=== PATIENT | female | born 1945 | race Caucasian/White ===

== ENCOUNTER 2016-12-03 06:19 | Emergency (ER) | payer MEDICARE, BC ==
[2016-12-03] MEDS ORDERED: HYDROCODONE/ACETAMINOPHEN 5-325 MG TABLET PO ONE (07:05)
--- NOTE | 2016-12-03 07:06 | ER Document Report ---
ED General - General Time seen by provider: 06:45 Mode of Arrival: Medic Information source: Patient TRAVEL OUTSIDE OF THE U.S. IN LAST 30 DAYS: No - HPI Onset: Other - see HPI note Associated symptoms: Chest pain, Other. denies: Vomiting Similar symptoms previously: No Recently seen / treated by doctor: No <GT FORD - Last Filed: 12/03/16 13:56> <LYUBOV FONTANA - Last Filed: 12/04/16 05:33> - General Chief Complaint: Chest Pain Stated Complaint: CHEST PAIN Notes: Patient is a 71-year-old female presenting to the emergency department for chest pain. Patient states that her pain is on the right side and goes into her shoulder or neck. Patient states the pain "grabs"her. Patient states her pain is constant and sharp that it came on gradually. Patient states that her left arm is stiff and her pain also radiates some into her back. Patient states that she just moved from [place] and slept on a new mattress last night. Patient states that when she sleeps on new pillows or different mattresses she can become very sore. Patient states she had massage last week. Patient denies any shortness of breath, cough, difficulty breathing, pain with breathing, or headache. Patient denies any history of blood clots. Patient has had a history of stroke x3. Patient has hypertension, but states that she is unable to take any blood pressure medications esophagus. Patient states she has started side effects with these medications and does not take them. Patient also has anxiety and a history of degenerative discs in her neck. Patient also has a history of 4.4 cm thoracic aneurysm which is being closely followed. (GT FORD) - Related Data Allergies/Adverse Reactions: Antihypertensive Medications Allergy (Uncoded 12/03/16 11:38) Past Medical History - General Information source: Patient - Social History Smoking Status: Unknown if Ever Smoked Family History: None Patient has suicidal ideation: No Patient has homicidal ideation: No Neurological Medical History: Reports: Hx Cerebrovascular Accident - x3 Musculoskeltal Medical History: Reports Other - degenerative disk disease Psychiatric Medical History: Reports: Hx Anxiety <GT FORD - Last Filed: 12/03/16 13:56> Review of Systems - Review of Systems Constitutional: No symptoms reported EENT: No symptoms reported Cardiovascular: See HPI, Chest pain Respiratory: No symptoms reported Gastrointestinal: No symptoms reported Genitourinary: No symptoms reported Female Genitourinary: No symptoms reported Musculoskeletal: See HPI Skin: No symptoms reported Hematologic/Lymphatic: No symptoms reported Neurological/Psychological: No symptoms reported -: Yes All other systems reviewed and negative <GT FORD - Last Filed: 12/03/16 13:56> Physical Exam - Vital signs Interpretation: Normal - General General appearance: Appears well, Alert In distress: Mild - HEENT Head: Normocephalic, Atraumatic Eyes: Normal Pupils: PERRL Mucous membranes: Moist - Respiratory Respiratory status: No respiratory distress Chest status: Tender - reproducible pain with palpation to right anterior chest wall Breath sounds: Normal Chest palpation: Normal - Cardiovascular Rhythm: Regular Heart sounds: Normal auscultation Murmur: No - Abdominal Inspection: Normal Distension: No distension Bowel sounds: Normal Tenderness: Nontender Organomegaly: No organomegaly - Back Back: Normal, Nontender - Extremities General upper extremity: Other - reproducible pain with movment of the right arm General lower extremity: Normal inspection, Normal ROM, Normal strength - Neurological Neuro grossly intact: Yes Cognition: Normal Orientation: AAOx4 [place] Coma Scale Eye Opening: Spontaneous Alvin Coma Scale Verbal: Oriented Alvin Coma Scale Motor: Obeys Commands Alvin Coma Scale Total: 15 Speech: Normal Sensory: Normal - Psychological Associated symptoms: Normal affect, Normal mood - Skin Skin Temperature: Warm Skin Moisture: Dry <GT FORD - Last Filed: 12/03/16 13:56> Course - Laboratory Result Diagrams: 12/03/16 07:10 12/03/16 07:10 <GT FORD - Last Filed: 12/03/16 13:56> - Laboratory Result Diagrams: 12/03/16 07:10 12/03/16 07:10 <LYUBOV FONTANA - Last Filed: 12/04/16 05:33> - Re-evaluation Re-evalutation: 12/03/16 11:08 Patient presents emergency department with right-sided chest pain right shoulder pain onset 4 days ago. She is moving recently doesn't know whether she injured or not it is reproducible to movement of her right arm touch and palpation of her right anterior chest wall. She denies any shortness of breath this does not change with exertion. She says that she has a history of a thoracic aneurysm which is monitored by a vascular surgeon in [place]. She also has extensive history of high blood pressure which she states she is allergic to all the medications has refused to take all them and sees a specialist that can no longer give her any medications to treat it she is aware that her blood pressure significantly elevated and chronically over time can cause additional strokes ruptured aneurysm kidney failure and aneurysm rupture. She verbalizes understanding that refuses any blood pressure medication here either orally or through the IV. She denies ever having a stent or heart attack in the past. Her EKG with none to compare to shows mild ST depression no acute ST segment elevation. Cardiac enzymes are negative with constant for days worth of chest wall pain and is reproducible with touch movement of the shoulder. She may have strained her rotator cuff she had significant pain when she tries to elevate her arm. CT of the chest abdomen pelvis is negative acute patient improved with [place] requesting muscle relaxer to has pain along the right sternocleidomastoid muscle and into the anterior shoulder. Has taken muscle relaxers for some similar in the past and actually got a massage that helped a little bit the other day. She states that anytime she sleeps with a new pallor mattress which she has done recently she gets pain down into her shoulder or neck and for that she gets a massage. We extensively discussed follow-up I gave her on-call medical doctor here seen in follow-up in 1-2 days and discussed reasons for ED return sooner. If they feel that she needs an outpatient stress test we discussed that I could be an option otherwise she verbalizes understanding on reasons to return. (LYUBOV FONTANA) - Vital Signs Vital signs: Temp Pulse Resp BP Pulse Ox 97.7 F 96 25 H 164/96 H 94 12/03/16 06:22 12/03/16 06:22 12/03/16 11:30 12/03/16 11:30 12/03/16 11:30 - Laboratory Laboratory results interpreted by me: 12/03/16 12/03/16 07:10 07:10 WBC 13.5 H RDW 15.2 H Absolute Neutrophils 8.8 H Sodium 135.1 L Chloride 97 L Glucose 241 H Discharge <GT FORD - Last Filed: 12/03/16 13:56> <LYUBOV FONTANA - Last Filed: 12/04/16 05:33> - Discharge Clinical Impression: nonspecific chest pain Condition: Stable Disposition: HOME, SELF-CARE Instructions: Chest Wall Pain ([facility]) Additional Instructions: Chest Pain of Unclear Cause The exact cause of your chest pain isn't clear. Fortunately, there is no evidence of a dangerous medical condition. Further testing may be required to find the source of the pain. Most often, we find that this pain is coming from the chest wall -- the muscles or rib joints in the chest. But chest pain can come from the lung and lung lining, the esophagus, the heart valves or heart lining, and even the stomach or gallbladder. Rest. Eat lightly until the pain is gone. We may prescribe medicine for pain and inflammation. You should call the physician immediately if the pain radiates to the shoulder, jaw or arms; if you start to run a fever or develop a cough; or if you develop shortness of breath, or other new or alarming symptoms. Prescriptions: Hydrocodone/Acetaminophen [[place] 5-325 Tablet] 1 each PO TID #12 tablet Methocarbamol [Robaxin 500 mg Tablet] 500 mg PO BID #12 tablet Forms: Elevated Blood Pressure Referrals: EDGAR OLIVERA MD [ACTIVE STAFF] - (Call for an appointment be seen in 2 or 3 days make sure he tell the urine ER patient do not have a local primary care physician return for increasing worsening or new symptoms) Scribe Attestation: 12/03/16 11:12 (LYUBOV FONTANA) Scribe Documentation - Scribe Written by Angel:: [place] 12/03/16 13:35 acting as scribe for :: Martin <GT FORD - Last Filed: 12/03/16 13:56>
[2016-12-03 07:30] LABS: ABSOLUTE BASOPHILS # (AUTO) 0.1 10^3/uL (0.0-0.2); ABSOLUTE EOSINOPHILS # (AUTO) 0.1 10^3/uL (0.0-0.6); ABSOLUTE LYMPHOCYTES (AUTO) 3.3 10^3/uL (0.5-4.7); ABSOLUTE MONOCYTES (AUTO) 1.2 10^3/uL (0.1-1.4); ABSOLUTE NEUT (AUTO) 8.8 10^3/uL (1.7-8.2); BASOPHILS % (AUTO) 0.4 % (0-2); EOSINOPHILS % (AUTO) 0.5 % (0-6); HEMATOCRIT 38.3 % (36.0-47.0); HEMOGLOBIN 13.1 g/dL (12.0-15.5); LYMPHOCYTES % (AUTO) 24.7 % (13-45); MEAN CORPUSCULAR HEMOGLOBIN 27.9 pg (27.0-33.4); MEAN CORPUSCULAR HGB CONC 34.2 g/dL (32.0-36.0); MEAN CORPUSCULAR VOLUME 82 fl (80-97); RED CELL DISTRIBUTION WIDTH 15.2 % (11.5-14.0); SEGMENTED NEUTROPHILS % (AUTO) 65.4 % (42-78); WHITE BLOOD COUNT 13.5 10^3/uL (4.0-10.5)
[2016-12-03 07:48] LABS: ANION GAP 12 (5-19); BLOOD UREA NITROGEN 11 mg/dL (7-20); CALCIUM 9.7 mg/dL (8.4-10.2); CARBON DIOXIDE 26 mmol/L (22-30); CHLORIDE 97 mmol/L (98-107); CREATINE KINASE 49 U/L (30-135); GLUCOSE 241 mg/dL (75-110); LIPASE 107.3 U/L (23-300); POTASSIUM 4.3 mmol/L (3.6-5.0); SODIUM 135.1 mmol/L (137-145)
[2016-12-03 08:19] LABS: TROPONIN I 0.107 ng/mL
[2016-12-03 11:37] VITALS: BP 164/96
--- NOTE | 2016-12-03 17:04 | EKG REPORT ---
SEVERITY:- ABNORMAL ECG - SINUS RHYTHM RIGHT BUNDLE BRANCH BLOCK ST DEPRESSION, CONSIDER ISCHEMIA, ANT-LAT LDS : Confirmed by: Alisha Bergeron MD 03-Dec-2016 17:02:44
== END 2016-12-03 11:59 | disposition home or self-care (01) ==
LOC: ER 06:19
DX: R07.9 Chest pain, unspecified (principal); F41.9 Anxiety disorder, unspecified
CPT/HCPCS: 93005; 99285; 36415; 82550; 83690; 85025; 80048; 84484; 83880; 71275; 74175; 93010; A9270

== ENCOUNTER → 2017-09-03 | Outpatient (CLI) | payer MEDICARE, BC ==
--- NOTE | 2017-09-03 13:23 | RADIOLOGY REPORT (SQ) ---
EXAM DESCRIPTION: BARIUM SWALLOW PHARYNX ONLY COMPLETED DATE/TIME: 09/03/2017 10:16 am REASON FOR STUDY: DYSPHAGIA (R13.10) R13.10 DYSPHAGIA, UNSPECIFIED COMPARISON: CT chest abdomen pelvis 12/03/2016 TECHNIQUE: Under fluoroscopic guidance, patient ingested effervescent granules followed by thick and thin barium. Fluoroscopic spot images and routine radiographic images acquired and stored on PACS. 12 MM BARIUM TABLET GIVEN: Yes. No significant delay in passage. LIMITATIONS: None. FLUOROSCOPY TIME: FLUORO TIME: 24 seconds 12 digital radiographic images saved to PACS. FINDINGS: NEUROMUSCULAR COORDINATION OF SWALLOW: Normal. No aspiration. ESOPHAGEAL MOTILITY: Normal peristalsis. No esophageal spasm. ESOPHAGEAL MUCOSA: Normal mucosa without masses or ulceration. GASTRO-ESOPHAGEAL JUNCTION: Tiny hiatal hernia with mild gastroesophageal reflux. No distal esophage al stricture. No distal esophageal mucosal abnormality. NON-GI TRACT STRUCTURES: No significant finding. OTHER: No other significant finding. IMPRESSION: Tiny hiatal hernia with mild gastroesophageal reflux. COMMENT: Quality ID [id number]: Final reports for procedures using fluoroscopy that document radiation exp osure indices, or exposure time and number of fluorographic images (if radiation exposure indices are not available) TECHNICAL DOCUMENTATION: JOB ID: [id number] [employer]- All Rights Reserved
== END ==
LOC: RAD 09:10
PROVIDERS: ATTEND Internal Medicine Gastroenterology
DX: R13.10 Dysphagia, unspecified (principal)
CPT/HCPCS: 74210

== ENCOUNTER → 2018-07-17 | Outpatient (CLI) | payer MEDICARE, BC ==
--- NOTE | 2018-07-17 16:48 | WOMENS IMAGING REPORT ---
EXAM DESCRIPTION: 3D SCREENING MAMMO BILAT COMPLETED DATE/TIME: 07/17/2018 2:42 pm REASON FOR STUDY: SCREENING MAMMO Z12.31 ENCNTR SCREEN MAMMOGRAM FOR MALIGNANT NEOPLASM OF TRICIA COMPARISON: None. TECHNIQUE: Standard craniocaudal and mediolateral oblique views of each breast recorded using digita l acquisition and breast tomosynthesis. LIMITATIONS: None. FINDINGS: No masses, calcifications or architectural distortion. No areas of suspicion. Read with the assistance of CAD. .[facility] - R2 [employer] Version 1.3 .[facility] Imaging - R2 Cenova Version 1.3 .[facility] Imaging - R2 Cenova Version 2.4 .[facility] - R2 Cenova Version 2.4 .[facility] - R2 [employer] Version 9.2 IMPRESSION: NORMAL MAMMOGRAM. BIRADS 1. BREAST DENSITY: c. The breasts are heterogeneously dense, which may obscure small masses. BIRAD: 1 NEGATIVE RECOMMENDATION: ROUTINE SCREENING Please continue yearly bilateral screening tomosynthesis in June 2019 COMMENT: The patient has been notified of the results by letter per SA requirements. Additional no tification policies are in place for contacting patient with suspicious or incomplete findings. Quality ID #[id number]: The [employer] recommends an annual screening mammogram for women aged 40 years or over. This facility utilizes a reminder system to ensure that all patients receive reminder letters, and/or direct phone calls for appointments. This includes reminders for routine scr eening mammograms, diagnostic mammograms, or other Breast Imaging Interventions when appropriate. Th is patient will be placed in the appropriate reminder system. The [employer] (ACR) has developed recommendations for screening MRI of the breast s in certain patient populations, to be used in conjunction with mammography. Breast MRI surveillanc e may be appropriate for women with more than 20% lifetime risk of developing breast cancer as deter mined by genetic testing, significant family history of the disease, or history of mantle radiation f or Hodgkins Disease. ACR Practice Guidelines 2008. DBT Technology DBT is a type of tomographic mammography. With conventional mammography, overlapping breast tissue ma y make lesions difficult to detect, even with good compression. DBT uses an x-ray tube that rotates a round the breast, taking images at different angles. These images are then combined to create thin sl ices of the breast that the radiologist can view as a 3D reconstruction. The [employer] unit can perform full-field digital mammograms (2D imaging); or DBT (3D imaging); or both, in a combination mode that quickly performs both the mammogram and the tomosynthesis scan while the breast is still compressed. PQRS 6045F: Fluoroscopic imaging is not utilized for breast tomosynthesis. TECHNICAL DOCUMENTATION: FINDING NUMBER: (1) ASSESSMENT: (1) JOB ID: [id number] [employer]- All Rights Reserved Reading location - IP/workstation name: [email or web address]-RR2
== END ==
LOC: WI 13:39
PROVIDERS: ATTEND Family Medicine
DX: Z12.31 Encounter for screening mammogram for malignant neoplasm of breast (principal)
CPT/HCPCS: 77063; 77067

== ENCOUNTER 2019-09-21 14:20 | Inpatient (IN) | payer MEDICARE, BC ==
--- NOTE | 2019-09-21 14:40 | ER Document Report ---
ED Medical Screen (RME) - General Chief Complaint: Breathing Difficulty Stated Complaint: BREATHING DIFFICULTY Time Seen by Provider: 09/21/19 14:30 Primary Care Provider: STEFAN THAKUR DO [Primary Care Provider] - Follow up as needed Mode of Arrival: Wheelchair Information source: Patient Notes: Patient presents complaining of shortness of breath for the past 6 weeks. Patient states over the past 2 weeks is gotten worse and she has extreme shortness of breath with exertion. Patient denies any chest pain or back pain. Patient denies any nausea or vomiting. Patient does report a history of CHF, hypertension and CAD. I have greeted and performed a rapid initial assessment of this patient. A comprehensive ED assessment and evaluation of the patient, analysis of test results and completion of the medical decision making process will be conducted by additional ED providers. TRAVEL OUTSIDE OF THE [place] IN LAST 30 DAYS: No - Related Data Allergies/Adverse Reactions: Antihypertensive Medications Allergy (Uncoded 12/03/16 11:38) Past Medical History Neurological Medical History: Reports: Hx Cerebrovascular Accident - x3 Renal/ Medical History: Denies: Hx Peritoneal Dialysis Psychiatric Medical History: Reports: Hx Anxiety Physical Exam - Respiratory Respiratory status: Labored, Tachypnea, Other - Patient speaks in short 3-5 word sentences Chest status: Nontender Breath sounds: No: Nonproductive cough Doctor's Discharge - Discharge Referrals: STEFAN THAKUR DO [Primary Care Provider] - Follow up as needed
[2019-09-21 15:14] LABS: ABSOLUTE BASOPHILS # (AUTO) 0.1 10^3/uL (0.0-0.2); ABSOLUTE EOSINOPHILS # (AUTO) 0.1 10^3/uL (0.0-0.6); ABSOLUTE LYMPHOCYTES (AUTO) 3.1 10^3/uL (0.5-4.7); ABSOLUTE MONOCYTES (AUTO) 0.4 10^3/uL (0.1-1.4); EOSINOPHILS % (AUTO) 1.2 % (0-6); HEMATOCRIT 36.2 % (36.0-47.0); HEMOGLOBIN 12.5 g/dL (12.0-15.5); LYMPHOCYTES % (AUTO) 39.8 % (13-45); MEAN CORPUSCULAR HGB CONC 34.4 g/dL (32.0-36.0); MEAN CORPUSCULAR VOLUME 84 fl (80-97); MONOCYTES % (AUTO) 5.8 % (3-13); PLATELET COUNT 372 10^3/uL (150-450); RED CELL DISTRIBUTION WIDTH 13.7 % (11.5-14.0); SEGMENTED NEUTROPHILS % (AUTO) 52.2 % (42-78); TOTAL CELLS COUNTED % (AUTO) 100 %; WHITE BLOOD COUNT 7.7 10^3/uL (4.0-10.5)
--- NOTE | 2019-09-21 15:41 | RADIOLOGY REPORT (SQ) ---
EXAM DESCRIPTION: CHEST SINGLE VIEW COMPLETED DATE/TIME: 09/21/2019 2:24 pm REASON FOR STUDY: dyspnea COMPARISON: None. EXAM PARAMETERS: NUMBER OF VIEWS: One view. TECHNIQUE: Single frontal radiographic view of the chest acquired. RADIATION DOSE: NA LIMITATIONS: None. FINDINGS: LUNGS AND PLEURA: No opacities, masses or pneumothorax. No pleural effusion. MEDIASTINUM AND HILAR STRUCTURES: No masses. Contour normal. HEART AND VASCULAR STRUCTURES: Moderate cardiomegaly. No pulmonary vascular congestion. BONES: No acute findings. HARDWARE: None in the chest. OTHER: No other significant finding. IMPRESSION: No acute cardiopulmonary disease. TECHNICAL DOCUMENTATION: JOB ID: [id number] [employer]- All Rights Reserved Reading location - IP/workstation name: [email or web address]
[2019-09-21 15:51] LABS: ALBUMIN 4.1 g/dL (3.5-5.0); ALKALINE PHOSPHATASE 98 U/L (38-126); ANION GAP 12 (5-19); ASPARTATE AMINO TRANSFERASE 23 U/L (14-36); BILIRUBIN,DIRECT 0.2 mg/dL (0.0-0.4); BILIRUBIN,TOTAL 0.7 mg/dL (0.2-1.3); BLOOD UREA NITROGEN 8 mg/dL (7-20); CALCIUM 9.8 mg/dL (8.4-10.2); CARBON DIOXIDE 23 mmol/L (22-30); CHLORIDE 105 mmol/L (98-107); GLUCOSE 170 mg/dL (75-110); POTASSIUM 3.9 mmol/L (3.6-5.0)
[2019-09-21 16:04] LABS: TROPONIN I 0.037 ng/mL
--- NOTE | 2019-09-21 16:05 | ER Document Report ---
ED General - General Chief Complaint: Shortness Of Breath Stated Complaint: BREATHING DIFFICULTY Time Seen by Provider: 09/21/19 14:30 Primary Care Provider: STEFAN THAKUR DO [Primary Care Provider] - Follow up as needed Mode of Arrival: Wheelchair Notes: HPI: 74-year-old female with past medical history as recorded including a cardiac stent this past May who presents today with what she states is some progressive shortness of breath since July. She states it is gotten a lot w orse over the last 2 weeks. Positive orthopnea. She does state some runny nose and congestion but she states that is been since July 29. Patient used to be on a water pill secondary to the stenting but this has been discontinued. Patient denies any fevers, vomiting, calf pain or leg swelling. Patient states 3 days ago she had a short episode of left-sided chest pain that was transient. No chest pain since that time. ROS: See HPI All other review of systems reviewed and otherwise negative Reviewed vital signs and nursing note as charted by RN. PHYSICAL EXAM: CONSTITUTIONAL: Alert and oriented and responds appropriately to questions. Well-appearing; well-nourished HEAD: Normocephalic; atraumatic CARD: Regular rate and rhythm; no murmurs; symmetric distal pulses RESP: Normal chest excursion without splinting or tachypnea; breath sounds clear and equal bilaterally; I do not auscultate any wheezing, rhonchi, or rales currently ABD/GI: Normal bowel sounds; non-distended; soft, non-tender; no palpable organomegaly or masses BACK: The back appears normal and is non-tender to palpation EXT: Normal ROM in all joints; non-tender to palpation; no edema SKIN: No acute lesions noted NEURO: CN 2-12 intact; 5/5 bilateral upper and lower extremity strength with sensation intact to light touch PSYCH: The patient's mood and manner are appropriate. Grooming and personal h ygiene are appropriate. TRAVEL OUTSIDE OF THE [place].S[place] IN LAST 30 DAYS: No - Related Data Allergies/Adverse Reactions: Antihypertensive Medications Allergy (Uncoded 12/03/16 11:38) Past Medical History - General Information source: Patient - Social History Smoking Status: Never Smoker Family History: None Patient has suicidal ideation: No Patient has homicidal ideation: No - Past Medical History Cardiac Medical History: Reports: Hx Congestive Heart Failure, Hx Hypertension Neurological Medical History: Reports: Hx Cerebrovascular Accident - x3 Renal/ Medical History: Denies: Hx Peritoneal Dialysis Psychiatric Medical History: Reports: Hx Anxiety, Hx Depression - anxiety Past Surgical History: Reports: Hx Appendectomy, Hx Cardiac Catheterization - stent x's 1, Hx Hysterectomy - partial Physical Exam - Vital signs Vitals: Temp Pulse Resp BP Pulse Ox 97.6 F 101 H 24 H 190/99 H 97 09/21/19 14:29 09/21/19 14:29 09/21/19 14:29 09/21/19 14:29 09/21/19 14:29 Course - Re-evaluation Re-evalutation: Given the above history and physical examination, we will obtain basic labs, cardiac labs, x-ray of the chest, and an EKG. I would like to assess for the possibility of ACS. Patient does state some shortness of breath. She however only had transient chest pain 3 days ago. No lower extremity edema or calf pain. No history of DVT/PE. Patient is slightly tachycardic. She also appears to be very anxious with tearful affect at times during the interview. Blood pressure is elevated. Lungs are clear to auscultation. D-dimer has been added. 09/21/19 16:03 Labs initially as recorded. D-dimer slightly elevated. Lungs appear clear on x-ray. BNP and troponin are pending. 09/21/19 16:07 EKG shows a heart rate of 107, sinus tachycardia, right bundle branch block, with inverted T waves II, III, AVF, V-V6.. Previous EKG in November 2016 shows a similar EKG pattern with progression of the RBBB. 09/21/19 17:38 Troponin and BNP as recorded. ABG is pending. I have provided a dose of Lasix. Patient is currently not on any fluid pills at this time. I have provided a small dose of Ativan given the patient's increased anxiety. I will recheck the patient's blood pressure. Patient is still satting 99%. 09/21/19 18:19 I called and spoke directly to the radiologist who sees some increased interstitial markings with some bilateral pleural effusions that are small. Patient feels much better after the morphine. She is still satting 100%, now on 2 L. Heart rate is 101. I will provide a small dose of nitroglycerin and place the patient on BiPAP just for some comfort as the Lasix has time to work. I have talked to the hospitalist who is admitted the patient. Initial troponin as recorded. Patient has not any chest discomfort for 3 days. - Vital Signs Vital signs: Temp Pulse Resp BP Pulse Ox 97.6 F 101 H 24 H 190/99 H 95 09/21/19 14:29 09/21/19 14:29 09/21/19 14:29 09/21/19 14:29 09/21/19 15:09 - Laboratory Result Diagrams: 09/21/19 15:03 09/21/19 15:03 Laboratory results interpreted by me: 09/21/19 09/21/19 09/21/19 15:03 15:03 15:11 D-Dimer 0.69 H Glucose 170 H NT-Pro-B Natriuret Pep 5500 H Discharge - Discharge Clinical Impression: Acute congestive heart failure Qualifiers: Heart failure type: unspecified Qualified Code(s): I50.9 - Heart failure, unspecified Condition: Fair Disposition: ADMITTED INPATIENT Admitting Provider: Mitra (Hospitalist) Unit Admitted: IMCU Referrals: STEFAN THAKUR DO [Primary Care Provider] - Follow up as needed
[2019-09-21] MEDS ORDERED: ASPIRIN 325 MG TABLET PO ONE (16:06)
[2019-09-21] MEDS ORDERED: IPRATROPIUM/ALBUTEROL 0.5-2.5 MG/3 ML AMPUL NEB SCH (16:15)
[2019-09-21] MEDS ORDERED: MORPHINE SULFATE 10 MG/ML INJ IV ONE (17:26)
[2019-09-21] MEDS ORDERED: FUROSEMIDE INJ/PF 40 MG/4 ML SDV IV ONE (17:38)
[2019-09-21] MEDS ORDERED: NITROGLYCERIN 0.4 MG/TAB 25 TAB/BOTTLE SL ONE (18:13)
[2019-09-21] MEDS ORDERED: ACETAMINOPHEN 325 MG TABLET PO PRN (18:21)
[2019-09-21] MEDS ORDERED: OXYCODONE-ACETAMINOPHEN 5-325 MG TABLET PO PRN (18:21)
[2019-09-21] MEDS ORDERED: PROMETHAZINE HCL INJ 25 MG/1 ML VIAL IV PRN (18:21)
[2019-09-21] MEDS ORDERED: MAG HYDROX/AL HYDROX/SIMETH SUSP 30 ML UDCUP PO PRN (18:21)
[2019-09-21] MEDS ORDERED: ONDANSETRON HCL INJ/PF 4 MG/2 ML SDV IV PRN (18:21)
[2019-09-21] MEDS ORDERED: MAGNESIUM HYDROXIDE SUSP 30 ML UDCUP PO PRN (18:21)
--- NOTE | 2019-09-21 18:44 | RADIOLOGY REPORT (SQ) ---
EXAM DESCRIPTION: CTA CHEST COMPLETED DATE/TIME: 09/21/2019 6:15 pm REASON FOR STUDY: 20; sob COMPARISON: Chest x-ray 09/21/2019. CT angiogram chest 12/03/2016 TECHNIQUE: CT scan of the chest performed using helical scanning technique with dynamic intravenous contrast injection. Images reviewed with lung, soft tissue and bone windows. Reconstructed coronal and sagittal MPR images reviewed. Additional 3 dimensional post-processing performed to develop Maximal Intensity Projection images (VT P). All images stored on PACS. All CT scanners at this facility use dose modulation, iterative reconstruction, and/or weight based d osing when appropriate to reduce radiation dose to as low as reasonably achievable (ALARA). [facility]: Dose Right [facility]: CareDose [facility]: Dose Right [facility]: Teradose 4D [facility]: My Luv My Life My Heartbeats CONTRAST TYPE AND DOSE: contrast/concentration: Isovue 350.00 mg/ml; Total Contrast Delivered: 63.0 ml; Total Saline Delivered: 80.0 ml Contrast bolus optimized for the pulmonary arteries. Not diagnostic for the aorta. RENAL FUNCTION: Creatinine 0.60 RADIATION DOSE: CT Rad equipment meets quality standard of care and radiation dose reduction techniq ues were employed. CTDIvol: 14.4 - 26.4 mGy. DLP: 512 mGy-cm. . LIMITATIONS: None. FINDINGS: LUNGS AND PLEURA: There are moderate bilateral pleural effusions with atelectasis at the a djacent lower lobes. There is diffuse septal thickening suggestive of interstitial edema. No pneumo thorax. AORTA AND GREAT VESSELS: Atherosclerotic calcifications at the thoracic aorta. There is 4.4 cm aneur ysmal dilation of the ascending thoracic aorta, previously measured 4.2 cm. Contrast bolus not optim ized for the aorta. HEART: The heart is enlarged. There is a small pericardial effusion. Coronary artery calcifications are noted. PULMONARY ARTERIES: No emboli visualized in the main pulmonary arteries or the segmental branches. HILAR AND MEDIASTINAL STRUCTURES: No identified masses or abnormal nodes. HARDWARE: None in the chest. UPPER ABDOMEN: There is reflux of intravenous contrast into the IVC and the hepatic veins. THYROID AND OTHER SOFT TISSUES: There is a 1.3 cm hypodense nodule at the right lobe of the thyroid g land. BONES: Multilevel degenerative changes at the spine. 3D MIPS: Confirm above findings. For IMPRESSION: 1. No pulmonary emboli. 2. Cardiomegaly. Coronary artery calcifications. Small pericardial effusion. Reflux of intravenous contrast into the IVC and the hepatic veins, may be seen with right heart failure. 2. Interstitial edema. Moderate bilateral pleural effusions with bibasilar atelectasis. 3. 4.4 cm aneurysmal dilation of the ascending thoracic aorta, mildly increased in the interval. 4. 1.3 cm hypodense nodule at the right lobe of the thyroid gland. Nonemergent thyroid ultrasound ca n be obtained for further characterisation. COMMENT: Quality ID # [id number]: Final reports with documentation of one or more dose reduction techniques (e.g., Automated exposure control, adjustment of the mA and/or kV according to patient size, use of iterative reconstruction technique) TECHNICAL DOCUMENTATION: JOB ID: [id number] [employer]- All Rights Reserved Reading location - IP/workstation name: [email or web address]
[2019-09-21] MEDS ORDERED: HYDRALAZINE HCL INJ/PF 20 MG/1 ML SDV IV PRN (18:57)
--- NOTE | 2019-09-21 18:57 | PDOC H&P ---
History of Present Illness Admission Date/PCP: STEFAN THAKUR DO History of Present Illness: ROBER VELÁZQUEZ is a 74 year old female past medical history of severe anxiety, obstructive sleep apnea, CHF, CAD status post stent placement in LAD May 2019, presenting with worsening shortness of breath, orthopnea and paroxysmal nocturnal dyspnea which has worsened after left heart cath and stent placement in May 2019. Denies any history prior [place] however stating that prior to stent placement in 2018 she had severe CHF had a left heart cath done which showed complete blockage of RCA and LAD, had a stent placed in LAD and was supposed to have a CABG but was not a candidate. She is stating does not remember any medication by name but all her life she has not been able to tolerate any of her medications " if I am supposed to take it regularly " therefore she is not taking any medications right now except for her antianxiety and muscle relaxants. She denies any chest pain, fever, chills, nausea, headache, lightheadedness, abdominal pain, diarrhea, constipation or any urinary symptoms. Past Medical History Cardiac Medical History: Reports: Congestive Heart Failure, Hypertension Psychiatric Medical History: Reports: Depression - anxiety Past Surgical History Past Surgical History: Reports: Appendectomy, Cardiac Catheterization - stent x's 1, Hysterectomy - partial Social History Smoking Status: Never Smoker Family History Family History: None Parental Family History Reviewed: Yes Children Family History Reviewed: Yes Sibling(s) Family History Reviewed.: Yes Medication/Allergy Home Medications: Hydrocodone/Acetaminophen [[place] 5-325 Tablet] 1 each PO TID #12 tablet 12/03/16 Methocarbamol [Robaxin 500 mg Tablet] 500 mg PO BID #12 tablet 12/03/16 Allergies/Adverse Reactions: Antihypertensive Medications Allergy (Uncoded 12/03/16 11:38) Review of Systems Review of Systems: as per hpi Physical Exam Vital Signs: Temp Pulse Resp BP Pulse Ox 97.6 F 101 H 24 H 190/99 H 95 09/21/19 14:29 09/21/19 14:29 09/21/19 14:29 09/21/19 14:29 09/21/19 15:09 Intake & Output 09/20/19 09/21/19 09/22/19 06:59 06:59 06:59 Weight 86.5 kg General appearance: PRESENT: no acute distress, mild distress, well-developed, well-nourished Head exam: PRESENT: atraumatic, normocephalic Respiratory exam: PRESENT: crackles, decreased breath sounds. ABSENT: rales, rhonchi, wheezes Cardiovascular exam: PRESENT: RRR. ABSENT: diastolic murmur, rubs, systolic murmur GI/Abdominal exam: PRESENT: normal bowel sounds, soft. ABSENT: distended, guarding, mass, organolmegaly, rebound, tenderness Neurological exam: PRESENT: alert, awake, oriented to person, oriented to place, oriented to time, oriented to situation, CN II-XII grossly intact. ABSENT: motor sensory deficit Results Laboratory Results: 09/21/19 15:03 09/21/19 15:03 09/21/19 09/21/19 09/21/19 15:03 15:03 17:30 WBC 7.7 RBC 4.30 Hgb 12.5 Hct 36.2 MCV 84 MCH 29.0 MCHC 34.4 RDW 13.7 Plt Count 372 Seg Neutrophils % 52.2 Carbonic Acid Cancelled HCO3/H2CO3 Ratio Cancelled ABG pH Cancelled ABG pCO2 Cancelled ABG pO2 Cancelled ABG HCO3 Cancelled ABG O2 Saturation Cancelled ABG Base Excess Cancelled FiO2 Cancelled Sodium 139.7 Potassium 3.9 Chloride 105 Carbon Dioxide 23 Anion Gap 12 BUN 8 Creatinine 0.60 Est GFR ( Amer) > 60 Glucose 170 H Calcium 9.8 Total Bilirubin 0.7 AST 23 Alkaline Phosphatase 98 Total Protein 7.0 Albumin 4.1 09/21/19 15:03 Troponin I 0.037 NT-Pro-B Natriuret Pep 5500 H Impressions: Chest X-Ray 09/21/19 14:38 IMPRESSION: No acute cardiopulmonary disease. Chest/Abdomen CTA 09/21/19 16:01 IMPRESSION: 1. No pulmonary emboli. 2. Cardiomegaly. Coronary artery calcifications. Small pericardial effusion. Reflux of intravenous contrast into the IVC and the hepatic veins, may be seen with right heart failure. 2. Interstitial edema. Moderate bilateral pleural effusions with bibasilar atelectasis. 3. 4.4 cm aneurysmal dilation of the ascending thoracic aorta, mildly increased in the interval. 4. 1.3 cm hypodense nodule at the right lobe of the thyroid gland. Nonemergent thyroid ultrasound can be obtained for further characterisation. Assessment and Plan - Diagnosis (1) Acute congestive heart failure Qualifiers: Heart failure type: systolic Qualified Code(s): I50.21 - Acute systolic (congestive) heart failure Is this a current diagnosis for this admission?: Yes Plan: Likely due to medication noncompliance. Patient reported that she cannot tolerate any of her antihypertensive meds due to side effects but not report any allergic reactions. She specifically mentioned that she does not tolerate Lasix and hydrochlorothiazide. Admit to ICU, strict in and out, fluid restriction, will try torsemide see if she tolerates. Once list of her allergies and home medications are being reconciled patient could be tried on different diuretics hopefully she can tolerate one We will obtain 2D echo. (2) Acute respiratory failure with hypoxia Is this a current diagnosis for this admission?: Yes Plan: Likely due to acute CHF exacerbation and bilateral pleural effusion. Denies any history of COPD or tobacco abuse. CTA negative. Admit to IMC, duo nebs, BiPAP, pulmonary toileting, incentive spirometry, flutter valve. Treat underlying CHF exacerbation. (3) CAD (coronary artery disease) Qualifiers: Coronary Disease-Associated Artery/Lesion type: teller artery Is this a current diagnosis for this admission?: Yes Plan: Denies any anginal symptoms. EKG no acute changes. Unfortunately reporting intolerance to her cardiac meds including statins. Resume antiplatelets. (4) Bilateral pleural effusion Is this a current diagnosis for this admission?: Yes Plan: Likely due to acute CHF exacerbation. Plan as per #2. Consider thoracentesis if cannot tolerate diuretics. (5) Hyperlipidemia Is this a current diagnosis for this admission?: Yes Plan: Diet and lifestyle modification recommended. Unfortunately reporting intolerance to antilipid meds. (6) Hypertension Is this a current diagnosis for this admission?: Yes Plan: Reporting intolerance to antihypertensive meds. Denies being allergic to any antihypertensive meds. We will try PRN hydralazine. Resume home meds once home meds are reconciled. (7) AIDAN (obstructive sleep apnea) Is this a current diagnosis for this admission?: Yes Plan: Nocturnal CPAP.
[2019-09-21] MEDS ORDERED: TORSEMIDE 20 MG TABLET PO ONE (19:00)
--- NOTE | 2019-09-21 20:36 | EKG REPORT ---
SEVERITY:- ABNORMAL ECG - SINUS TACHYCARDIA RIGHT BUNDLE BRANCH BLOCK PROBABLE ANTEROSEPTAL INFARCT, AGE INDETERM : Confirmed by: Alisha Bergeron MD 21-Sep-2019 20:34:17
[2019-09-21] MEDS: IPRATROPIUM/ALBUTEROL 0.5-2.5 MG/3 ML AMPUL NEB SCH (21:29)
[2019-09-21] MEDS: FAMOTIDINE 20 MG TABLET PO SCH (23:30)
[2019-09-21] MEDS: LORAZEPAM 0.5 MG TABLET PO SCH (23:34)
[2019-09-21] MEDS ORDERED: MORPHINE SULFATE 10 MG/ML INJ IV PRN (23:36)
[2019-09-22] MEDS: HYDRALAZINE HCL INJ/PF 20 MG/1 ML SDV IV SCH ×6 (04:14→21:05)
[2019-09-22] MEDS: NITROGLYCERIN 2% OINTMENT 1 GM PACKET TP SCH ×2 (04:15→05:00)
--- NOTE | 2019-09-22 04:21 | Progress Note ---
Provider Note Provider Note: Critical care note: 09/21/2019 Critical care start time: 22:18 Critical care issue: Severe malignant hypertension I was called by the nursing staff to evaluate the patient due to blood pressures of 220's/130's. The patient had medications ordered to treat her in the interim before I could arrive to evaluate her however she refused to allow administration of any medication except for aspirin and Ativan. She told nursing staff that she wanted to be a DNR/DNI patient and that she had a advanced directive on file and brought a copy with her to the hospital. I instructed the nursing staff to obtain a copy of the patient's advanced directive from the nursing service in the ER where she had delivered it. The patient's advanced directive is now on her chart. I encouraged the patient to consider using topical nitroglycerin ointment and IV morphine to help provide her relief from the discomfort of her dyspnea and she agreed to consider this treatment. Additionally I offered to make Ativan available to her both intravenously and orally to enable her to have a selection of medication route if she desires. She will be continued on her usual aspirin therapy. At the present time patient has refused to allow the administration of any other medications and therefore orders for those medications will be discontinued until such time as she may change her mind. I discussed the patient's wishes with her at great length and we discussed treatment options at great length. Patient's blood pressure remains significantly elevated after treatment with Ativan and aspirin. She admits severe dyspnea with any exertion. On exam the patient was noted to have fine rales in the lower one thirds of her bilateral lung kaye, bilateral jugular venous distention at 45 degrees elevation and a regular rate and rhythm of her heart with an S4 gallop noted. Patient was noted to have only trace to minimal bipedal edema. Critical care end time: 03:43 09/22/2019 Total critical care time: 44 minutes
--- NOTE | 2019-09-22 04:25 | ADVANCED CARE ---
- Diagnosis (1) Malignant hypertension Diagnosis Current: Yes (2) Acute pulmonary edema with congestive heart failure Diagnosis Current: Yes (3) Acute congestive heart failure Diagnosis Current: Yes (4) Acute respiratory failure with hypoxia Diagnosis Current: Yes (5) CAD (coronary artery disease) Diagnosis Current: Yes (6) Hyperlipidemia Diagnosis Current: Yes (7) AIDAN (obstructive sleep apnea) Diagnosis Current: Yes Attendance: The patient and myself. Resuscitation Status: Do Not Resuscitate Discussion: Patient expressed to the nurse that she wished to have her CODE STATUS changed to DNR and I was summoned to make the changes to the patient's orders. After discussing with the patient her wishes in depth she wishes to be a DNR and DNI status patient in the event of a cardiac or pulmonary arrest. She also wishes to refuse treatment with the exception of individual medications which she will name. Her current list of acceptable treatment medications is aspirin and Ativan. I have asked the patient to consider using morphine sulfate and nitroglycerin ointment for treatment of her pulmonary edema to ease her discomfort related to her dyspnea which is markedly worsened on exertion. She agrees to consider this treatment. Care Planning Goals: The patient's CODE STATUS is changed to DNR DNI per her wishes. The patient's designated surrogate medical decision-maker is Srinath Toledo Document(s) Completed: The patient's advanced directive is obtained and placed on the chart. Time Spent: 22 minutes
[2019-09-22] MEDS: METOPROLOL TARTRATE PF/INJ 5 MG/5 ML SDV IV SCH ×5 (05:00→21:05)
[2019-09-22] MEDS: LORAZEPAM 0.5 MG TABLET PO SCH ×3 (05:24→21:03)
[2019-09-22 06:56] LABS: ABSOLUTE BASOPHILS # (AUTO) 0.1 10^3/uL (0.0-0.2); ABSOLUTE EOSINOPHILS # (AUTO) 0.1 10^3/uL (0.0-0.6); ABSOLUTE LYMPHOCYTES (AUTO) 2.8 10^3/uL (0.5-4.7); ABSOLUTE MONOCYTES (AUTO) 0.5 10^3/uL (0.1-1.4); ABSOLUTE NEUT (AUTO) 4.7 10^3/uL (1.7-8.2); BASOPHILS % (AUTO) 0.9 % (0-2); EOSINOPHILS % (AUTO) 1.1 % (0-6); HEMATOCRIT 36.1 % (36.0-47.0); HEMOGLOBIN 12.1 g/dL (12.0-15.5); LYMPHOCYTES % (AUTO) 33.7 % (13-45); MEAN CORPUSCULAR HEMOGLOBIN 28.2 pg (27.0-33.4); MEAN CORPUSCULAR HGB CONC 33.6 g/dL (32.0-36.0); MEAN CORPUSCULAR VOLUME 84 fl (80-97); MONOCYTES % (AUTO) 6.2 % (3-13); PLATELET COUNT 359 10^3/uL (150-450); RED CELL DISTRIBUTION WIDTH 13.5 % (11.5-14.0); SEGMENTED NEUTROPHILS % (AUTO) 58.1 % (42-78); TOTAL CELLS COUNTED % (AUTO) 100 %; WHITE BLOOD COUNT 8.2 10^3/uL (4.0-10.5)
[2019-09-22 07:06] LABS: ALKALINE PHOSPHATASE 103 U/L (38-126); ANION GAP 11 (5-19); ASPARTATE AMINO TRANSFERASE 21 U/L (14-36); BILIRUBIN,TOTAL 0.8 mg/dL (0.2-1.3); BLOOD UREA NITROGEN 8 mg/dL (7-20); CALCIUM 9.2 mg/dL (8.4-10.2); CARBON DIOXIDE 22 mmol/L (22-30); CHLORIDE 106 mmol/L (98-107); GLUCOSE 145 mg/dL (75-110); TOTAL PROTEIN 6.6 g/dL (6.3-8.2)
[2019-09-22] MEDS ORDERED: PROMETHAZINE HCL INJ 25 MG/1 ML VIAL IV PRN (07:30)
[2019-09-22] MEDS ORDERED: ONDANSETRON HCL INJ/PF 4 MG/2 ML SDV IV PRN (07:30)
[2019-09-22] MEDS ORDERED: NITROGLYCERIN 2% OINTMENT 1 GM PACKET TP ONE (07:45)
[2019-09-22] MEDS: IPRATROPIUM/ALBUTEROL 0.5-2.5 MG/3 ML AMPUL NEB SCH ×3 (08:45→20:47)
[2019-09-22] MEDS: TORSEMIDE 20 MG TABLET PO SCH (09:47)
[2019-09-22] MEDS: FAMOTIDINE 20 MG TABLET PO SCH ×2 (09:48→21:03)
[2019-09-22] MEDS: ENOXAPARIN SODIUM INJ 40 MG/0.4 ML DISP.SYRIN SUBCUT SCH (09:48)
[2019-09-22] MEDS ORDERED: NITROGLYCERIN 2% OINTMENT 1 GM PACKET TP SCH (12:00)
[2019-09-22] MEDS ORDERED: VALSARTAN 160 MG TABLET PO ONE (17:30)
[2019-09-22] MEDS: ISOSORBIDE MONONITRATE 30 MG TAB.ER.24H PO SCH (18:06)
[2019-09-23] MEDS: HYDRALAZINE HCL INJ/PF 20 MG/1 ML SDV IV SCH ×8 (00:17→23:07)
[2019-09-23] MEDS: METOPROLOL TARTRATE PF/INJ 5 MG/5 ML SDV IV SCH ×6 (03:03→21:10)
[2019-09-23] MEDS: LORAZEPAM 0.5 MG TABLET PO SCH ×3 (05:52→21:21)
[2019-09-23] MEDS: IPRATROPIUM/ALBUTEROL 0.5-2.5 MG/3 ML AMPUL NEB SCH ×3 (08:06→20:12)
[2019-09-23] MEDS: TORSEMIDE 20 MG TABLET PO SCH (10:45)
[2019-09-23] MEDS: FAMOTIDINE 20 MG TABLET PO SCH ×2 (10:45→21:21)
[2019-09-23] MEDS: VALSARTAN 160 MG TABLET PO SCH (10:47)
[2019-09-23] MEDS: ISOSORBIDE MONONITRATE 30 MG TAB.ER.24H PO SCH (10:47)
[2019-09-23] MEDS: ENOXAPARIN SODIUM INJ 40 MG/0.4 ML DISP.SYRIN SUBCUT SCH (10:48)
--- NOTE | 2019-09-23 15:39 | PDOC PROGRESS REPORT ---
Subjective Progress Note for:: 09/23/19 Subjective:: Patient agreed to take valsartan and Imdur yesterday. However today, patient is once again refusing to take all blood pressure medications. Patient continues to states that the blood pressure medications were given yesterday made her feel like she wanted to kill herself. Patient is convinced that she has tried all blood pressure medications before and that all blood pressure medications give her an allergic reaction that makes her want to kill herself and makes her feel bad. Patient now refusing to take all blood pressure medications. I have explained to patient multiple times that these are not side effects of the blood pressure medications and have also explained to her the significant risks of not taking this blood pressure medications which include stroke, heart attack amongst others. Patient continues to insist against taking his blood pressure medications and tells me that her primary care provider knows that she does not take blood pressure medications for this reason. Reason For Visit: ACUTE HYPOXIC RESPIRATORY FAILURE,ACUTE CHF EXACER Physical Exam Vital Signs: Temp Pulse Resp BP Pulse Ox 97.8 F 99 18 170/74 H 94 09/23/19 13:54 09/23/19 13:54 09/23/19 13:31 09/23/19 13:54 09/23/19 13:54 Intake & Output 09/22/19 09/23/19 09/24/19 06:59 06:59 06:59 Intake Total 560 1040 720 Output Total 400 1300 900 Balance 160 -260 -180 Weight 88 kg 85.4 kg General appearance: PRESENT: no acute distress, cooperative Respiratory exam: PRESENT: clear to auscultation christiano, unlabored. ABSENT: tachypnea, wheezes Cardiovascular exam: PRESENT: RRR, +S1, +S2. ABSENT: tachycardia GI/Abdominal exam: PRESENT: soft. ABSENT: rebound, rigid, tenderness Neurological exam: PRESENT: alert, awake, oriented to person, oriented to place, oriented to time, oriented to situation Psychiatric exam: PRESENT: anxious Results Laboratory Results: 09/22/19 06:04 09/22/19 06:04 09/21/19 09/21/19 15:03 18:18 Troponin I 0.037 0.038 NT-Pro-B Natriuret Pep 5500 H Impressions: Chest X-Ray 09/21/19 14:38 IMPRESSION: No acute cardiopulmonary disease. Chest/Abdomen CTA 09/21/19 16:01 IMPRESSION: 1. No pulmonary emboli. 2. Cardiomegaly. Coronary artery calcifications. Small pericardial effusion. Reflux of intravenous contrast into the IVC and the hepatic veins, may be seen with right heart failure. 2. Interstitial edema. Moderate bilateral pleural effusions with bibasilar atelectasis. 3. 4.4 cm aneurysmal dilation of the ascending thoracic aorta, mildly increased in the interval. 4. 1.3 cm hypodense nodule at the right lobe of the thyroid gland. Nonemergent thyroid ultrasound can be obtained for further characterisation. Assessment and Plan - Diagnosis (1) Hypertensive emergency Is this a current diagnosis for this admission?: Yes Plan: Characterized by significantly elevated blood pressures, chest pain and shortness of breath with evidence of potential diastolic heart failure Patient continues to refuse all blood pressure medications. At this time, she does seem to have capacity but is very anxious about reacting to blood pressure medications. Despite several attempts to reassure and explained to patient that her reported side effect and no true side effects of the antihypertensives and putting her on, patient continues to refuse. Patient has declined valsartan and Imdur as well as over the proposed antihypertensives. At this time I have consulted palliative care as well as psychiatry to help with management of anxiety. Risks of refusing antihypertensives have been clearly explained to her and she has voiced understanding. (2) Acute diastolic heart failure Is this a current diagnosis for this admission?: Yes Plan: Likely secondary to hypertension uncontrolled. We will follow-up echocardiogram. (3) Anxiety Is this a current diagnosis for this admission?: Yes Plan: Currently on Ativan. Started on buspirone. Psychiatric consulted. (4) Acute respiratory failure with hypoxia Is this a current diagnosis for this admission?: Yes Plan: Currently patient is tolerating room air likely due to acute CHF exacerbation and bilateral pleural effusion. CTA negative for PE (5) Bilateral pleural effusion Is this a current diagnosis for this admission?: Yes Plan: Likely due to acute CHF exacerbation. Plan as per #2. Continue torsemide (6) AIDAN (obstructive sleep apnea) Is this a current diagnosis for this admission?: Yes Plan: Nocturnal CPAP. - Time Time Spent with patient: 15-24 minutes
[2019-09-23] MEDS ORDERED: NITROGLYCERIN 0.4 MG/TAB 25 TAB/BOTTLE SL PRN (15:40)
[2019-09-23] MEDS: BUSPIRONE HCL 10 MG TABLET PO SCH ×2 (17:06→21:25)
--- NOTE | 2019-09-23 17:27 | EKG REPORT ---
SEVERITY:- ABNORMAL ECG - SINUS TACHYCARDIA MULTIFORM VENTRICULAR PREMATURE COMPLEXES NONSPECIFIC INTRAVENTRICULAR CONDUCTION DELAY ST DEPRESSION, CONSIDER ISCHEMIA, DIFFUSE LDS : Confirmed by: Bud Jo MD 23-Sep-2019 17:26:11
[2019-09-24] MEDS: METOPROLOL TARTRATE PF/INJ 5 MG/5 ML SDV IV SCH ×3 (01:47→09:50)
[2019-09-24] MEDS: HYDRALAZINE HCL INJ/PF 20 MG/1 ML SDV IV SCH ×5 (03:15→22:29)
[2019-09-24] MEDS: BUSPIRONE HCL 10 MG TABLET PO SCH ×3 (05:16→22:29)
[2019-09-24] MEDS: LORAZEPAM 0.5 MG TABLET PO SCH ×3 (05:50→22:27)
[2019-09-24] MEDS ORDERED: NITROGLYCERIN 10 MG (0.4 MG/HR) PATCH.TD24 TD ONE (08:30)
[2019-09-24] MEDS: IPRATROPIUM/ALBUTEROL 0.5-2.5 MG/3 ML AMPUL NEB SCH ×3 (08:44→21:23)
[2019-09-24] MEDS: TORSEMIDE 20 MG TABLET PO SCH (09:48)
[2019-09-24] MEDS: VALSARTAN 160 MG TABLET PO SCH (09:50)
[2019-09-24] MEDS: FAMOTIDINE 20 MG TABLET PO SCH ×2 (09:50→22:27)
[2019-09-24] MEDS: ENOXAPARIN SODIUM INJ 40 MG/0.4 ML DISP.SYRIN SUBCUT SCH (09:50)
--- NOTE | 2019-09-24 10:58 | PDOC PROGRESS REPORT ---
Subjective Progress Note for:: 09/24/19 Subjective:: Again patient refuses to take all antihypertensive medication. Had a lengthy conversation once again with patient about her perceived allergies to all antihypertensives and that these are not true side effects from those medications. Patient also refused buspirone which I started patient on giving her significant anxiety about her antihypertensive medications. I also spoke with patient's primary care provider Dr. Bliss who confirmed to me that patient has not been on any antihypertensives for the past couple years and her blood pressure has sustained in the 180s to 200s systolic with diastolics even up to over 100 but patient has continued to to have perceived adverse reactions to all antihypertensives that he has tried on. He states that he was able to talk patient into trying IV Lasix while in the hospital which I will try for patient. Reason For Visit: ACUTE HYPOXIC RESPIRATORY FAILURE,ACUTE CHF EXACER Physical Exam Vital Signs: Temp Pulse Resp BP Pulse Ox 97.6 F 100 12 183/97 H 99 09/24/19 07:32 09/24/19 07:32 09/24/19 07:32 09/24/19 07:32 09/24/19 07:32 Intake & Output 09/23/19 09/24/19 09/25/19 06:59 06:59 06:59 Intake Total 1040 1080 Output Total 1300 1950 Balance -260 -870 Weight 85.4 kg 85 kg Respiratory exam: PRESENT: crackles - Mild, decreased breath sounds - Bibasilar, unlabored. ABSENT: tachypnea, wheezes Cardiovascular exam: PRESENT: RRR, +S1, +S2, tachycardia GI/Abdominal exam: PRESENT: soft. ABSENT: normal bowel sounds, rebound, rigid, tenderness Neurological exam: PRESENT: alert, awake, oriented to person, oriented to place, oriented to time, oriented to situation Results Laboratory Results: 09/22/19 06:04 09/22/19 06:04 09/21/19 09/21/19 09/23/19 15:03 18:18 15:00 Creatine Kinase 66 Troponin I 0.037 0.038 NT-Pro-B Natriuret Pep 5500 H 09/23/19 09/23/19 15:00 21:16 Creatine Kinase Troponin I 0.036 0.055 NT-Pro-B Natriuret Pep Impressions: Chest X-Ray 09/21/19 14:38 IMPRESSION: No acute cardiopulmonary disease. Chest/Abdomen CTA 09/21/19 16:01 IMPRESSION: 1. No pulmonary emboli. 2. Cardiomegaly. Coronary artery calcifications. Small pericardial effusion. Reflux of intravenous contrast into the IVC and the hepatic veins, may be seen with right heart failure. 2. Interstitial edema. Moderate bilateral pleural effusions with bibasilar atelectasis. 3. 4.4 cm aneurysmal dilation of the ascending thoracic aorta, mildly increased in the interval. 4. 1.3 cm hypodense nodule at the right lobe of the thyroid gland. Nonemergent thyroid ultrasound can be obtained for further characterisation. Assessment and Plan - Diagnosis (1) Hypertensive emergency Is this a current diagnosis for this admission?: Yes Plan: Characterized by significantly elevated blood pressures, chest pain and shortness of breath with evidence of potential diastolic heart failure Patient continues to refuse all blood pressure medications. At this time, she does seem to have capacity but is very anxious about reacting to blood pressure medications. Despite several attempts to reassure and explained to patient that her reported side effect and not true side effects of the antihypertensives and putting her on, patient continues to refuse. Patient has declined valsartan and Imdur as well as other proposed antihypertensives. Patient has also declined beta-blockers. I will try IV Lasix as patient's PCP informs me that he has talked to patient and she has agreed to try it while in the hospital. I have clearly explained the risks of refusing the antihypertensives and the fact that this would make any other treatment of her heart failure futile as this is probably the cause of her heart failure. I have also explained the r isks of having a heart attack, stroke and dying from CHF or other cardiovascular causes if she continues to refuse her BP meds and patient has understood these risks and is willing to accept them rather than taking the blood pressure medications. Palliative care meeting to follow today. (2) Acute diastolic heart failure Is this a current diagnosis for this admission?: Yes Plan: Likely secondary to uncontrolled hypertension Plan as listed in problem #1 with monitoring of I's and O's. Will try Nitropaste. Awaiting echocardiogram results (3) Anxiety Is this a current diagnosis for this admission?: Yes Plan: Patient seems to have significant anxiety about taking medications especially antihypertensives. Also may have a component of depression. Currently on Ativan. Started on buspirone which patient has refused. Psychiatric consulted. (4) Acute respiratory failure with hypoxia Is this a current diagnosis for this admission?: Yes Plan: Currently patient is tolerating room air likely due to acute CHF exacerbation and bilateral pleural effusion. CTA negative for PE (5) Bilateral pleural effusion Is this a current diagnosis for this admission?: Yes Plan: Likely due to acute CHF exacerbation. Patient has declined thoracentesis at this time. Lasix IV 40 mg twice daily (6) AIDAN (obstructive sleep apnea) Is this a current diagnosis for this admission?: Yes Plan: Nocturnal NIPPV. - Time Time Spent with patient: 25-34 minutes
--- NOTE | 2019-09-24 12:29 | XCELERA REPORT ---
[address] [address] Transthoracic Echocardiogram Report Name: ROBER VELÁZQUEZ Age: 74 yrs Gender: Female : 1945 Patient Status: Inpatient Patient Location: [address] [place], [place] [address] Study Date: 09/22/2019 05:24 PM Height: 64 in Weight: 190 lb BSA: 1.9 m2 Reason For Study: acute chf Ordering Physician: RUBINA RUST Performed By: Romy aCstillo Interpretation Summary The Ejection Fraction estimate is 40-45% Left ventricular systolic function is mild to moderately reduced. The left ventricle is grossly normal size. LV diastolic function could not be adequately assessed. Regional wall motion abnormalities cannot be excluded due to limited visualization. The right ventricle is borderline dilated. The right ventricular systolic function is normal. The left atrium is mildly dilated. The right atrium is mildly dilated. There is a mild to moderate amount of mitral regurgitation There is no mitral valve stenosis. There is a mild to moderate amount of aortic regurgitation There is no aortic valve stenosis There is a trace to mild amount of tricuspid regurgitation Tricuspid regurgitation jet envelope not well defined to measure RV systolic pressure accurately. The aortic root is not well visualized but is probably normal size. The inferior vena cava appeared normal and decreased > 50% with respiration (RAP 5-10 mmHg) Minimal pericardial effusion. Small left pleural effusion. MMode/2D Measurements & Calculations RVDd: 2.2 cm LVIDd: 6.3 cm FS: 19.7 % Ao root diam: IVSd: 0.99 cm LVIDs: 5.0 cm EDV(Teich): 3.4 cm LVPWd: 0.93 cm 199.9 ml Ao root area: ESV(Teich): 120.7 ml 9.2 cm2 LA dimension: EF(Teich): 39.7 % 3.7 cm LVLd ap4: 8.5 cm SV(MOD-sp4): EDV(MOD-sp4): 36.0 ml 118.0 ml LVLs ap4: 7.4 cm ESV(MOD-sp4): 82.0 ml EF(MOD-sp4): 30.5 % Doppler Measurements & Calculations MV E max tatum: MV P1/2t max tatum: Ao V2 max: AI max tatum: 121.5 cm/sec 167.2 cm/sec 199.8 cm/sec 411.7 cm/sec MV A max tatum: MV P1/2t: 60.6 msec Ao max PG: AI max P.1 cm/sec MVA(P1/2t): 3.6 cm2 16.0 mmHg 68.0 mmHg MV E/A: 0.87 MV dec slope: AI dec slope: 422.8 cm/sec2 808.2 cm/sec2 AI P1/2t: MV dec time: 285.2 msec 0.14 sec LV V1 max PG: PA V2 max: PI end-d tatum: TR max tatum: 7.6 mmHg 59.7 cm/sec 126.0 cm/sec 200.9 cm/sec LV V1 max: PA max P.4 mmHg TR max P.7 cm/sec 16.1 mmHg AV P1/2t-pr_phl: MV P1/2t-pr_phl: 295.7 msec 60.6 msec Left Ventricle The left ventricle is grossly normal size. Left ventricular systolic function is mild to moderately reduced. The Ejection Fraction estimate is 40-45%. LV diastolic function could not be adequately assessed. Regional wall motion abnormalities cannot be excluded due to limited visualization. Right Ventricle The right ventricle is borderline dilated. There is normal right ventricular wall thickness. The right ventricular systolic function is normal. Atria The right atrium is mildly dilated. The left atrium is mildly dilated. Interarterial septum not well visualized and not well dopplered. Cannot comment on ASD/PFO presence. Mitral Valve The mitral valve leaflets are sclerotic, but show no functional abnormalities. There is no mitral valve stenosis. There is a mild to moderate amount of mitral regurgitation. Aortic Valve The aortic valve is not well visualized secondary to technical limitations. There is no aortic valve stenosis. There is a mild to moderate amount of aortic regurgitation. Tricuspid Valve The tricuspid valve is not well visualized secondary to technical limitations. There is no tricuspid stenosis. There is a trace to mild amount of tricuspid regurgitation. Tricuspid regurgitation jet envelope not well defined to measure RV systolic pressure accurately. Pulmonic Valve The pulmonic valve is not well visualized. Great Vessels The aortic root is not well visualized but is probably normal size. The inferior vena cava appeared normal and decreased > 50% with respiration (RAP 5-10 mmHg). Effusions Minimal pericardial effusion. Small left pleural effusion. : RUBINA RUST Shyamal
[2019-09-24] MEDS: FUROSEMIDE INJ/PF 40 MG/4 ML SDV IV SCH ×2 (12:38→17:26)
--- NOTE | 2019-09-24 18:13 | PSYCHOLOGICAL NOTE ---
Psych Note - Psych Note Date seen by psych provider: 09/24/19 Time seen by psych provider: 14:05 - 1420 Psych Note: Reason For Consult: Anxiety Patient discloses that she experiences frustration when it comes to new providers not believing that she has side effects from blood pressure medications. She does not like taking medications daily and feels that she does not need Buspar to help with anxiety. She states she takes ativan for her anxiety symptoms and only takes it when she needs; ie about 2 time a week. She reports she started ativan 5 years ago after the of her daughter. Patient was not concerned that Ativan is a controlled substance because "I don't take it like that....I am 74 years old..I know my body." She confirms she has agreed to the medication her PCM talked to her about. She clearly discussed her thoughts on blood pressure medications and she reports it is her choice not to take them and states she knows that with out the medications it means her blood pressure is not controls which causes her to get sicker. She reports she has a DNR and a living will and while she does not want to , she is not interested in taking medications that make her feel bad just to extend her life. Patient is alert and orientated to person, place, time and circumstance. Mood is euthymic with congruent affect as evidenced by smiling, laughing and engaging with clinician. Patient denies suicidal and homicidal ideation. Delusions are absent and behaviors congruent with an intact reality based presentation ie organized and linear thought process. Eye contact is well-maintained. Conversational speech is within normal rate, tone and prosody. Intellectual abilities appear to be within the average range. Attention and concentration are good. Insight, judgment, impulse control are fair. Impression\\plan: Patient is cleared from acute psychiatric services. Clinician attempted to provide psychoeducation on changing her anxiety medication from Ativan to BuSpar. Patient reports she has no interest in this. While patient reports she only takes Ativan twice a week there is concern the patient uses it significantly more as evidenced by her current use here at [facility]. Patient was very pleasant and engaged appropriately with clinician and had a very good discussion in regards to demonstrating her ability to make her own decisions and her plan of care. She reports she has a DNR and living well and is not interested in taking medications daily. She was able to clearly communicate the understanding that if she does not take blood pressure medications this could have severe negative consequences to her health. At this time, the patient does agree to take Lasix which was recommended to her by her PCM. The patient is not interested in long-term maintenance use, and there is a high probability that patient will just temporary use the medication currently here in [facility] and/or she will disclose unwanted side effects to justify discontinuing. Dr. Vazquez was consulted to care management of this patient; attending physicians in agreement with recommendations and disposition.
[2019-09-25] MEDS: HYDRALAZINE HCL INJ/PF 20 MG/1 ML SDV IV SCH ×5 (01:04→16:42)
[2019-09-25] MEDS: BUSPIRONE HCL 10 MG TABLET PO SCH ×2 (05:13→12:59)
[2019-09-25 05:27] LABS: ANION GAP 10 (5-19); BLOOD UREA NITROGEN 8 mg/dL (7-20); CALCIUM 9.4 mg/dL (8.4-10.2); CARBON DIOXIDE 26 mmol/L (22-30); CHLORIDE 103 mmol/L (98-107); GLUCOSE 151 mg/dL (75-110); POTASSIUM 3.3 mmol/L (3.6-5.0)
[2019-09-25] MEDS: LORAZEPAM 0.5 MG TABLET PO SCH ×3 (05:42→21:36)
[2019-09-25] MEDS: IPRATROPIUM/ALBUTEROL 0.5-2.5 MG/3 ML AMPUL NEB SCH ×3 (08:40→20:20)
[2019-09-25] MEDS: POTASSI CL 20 MEQ/50 ML RIDER 20 MEQ/50 ML RTUPB IV SCH ×2 (09:03→11:00)
[2019-09-25] MEDS: VALSARTAN 160 MG TABLET PO SCH (09:04)
[2019-09-25] MEDS: FAMOTIDINE 20 MG TABLET PO SCH ×2 (09:04→21:36)
[2019-09-25] MEDS: ENOXAPARIN SODIUM INJ 40 MG/0.4 ML DISP.SYRIN SUBCUT SCH (09:04)
[2019-09-25] MEDS: FUROSEMIDE INJ/PF 40 MG/4 ML SDV IV SCH ×2 (09:04→17:41)
[2019-09-25] MEDS: POTASSIUM CHLORIDE 10 MEQ TABLET.ER PO SCH ×2 (09:05→17:41)
--- NOTE | 2019-09-25 18:21 | PDOC PROGRESS REPORT ---
Subjective Progress Note for:: 09/25/19 Subjective:: Patient continues to refuse all blood pressure medications besides Lasix IV. However she does occasionally complain of feeling short of breath when she tries to ambulate. Patient is completely aware of the fact that condition will not get better if she does not allow us to put on any blood pressure medications and any beta-blockers for congestive heart failure. Reason For Visit: ACUTE HYPOXIC RESPIRATORY FAILURE,ACUTE CHF EXACER Physical Exam Vital Signs: Temp Pulse Resp BP Pulse Ox 97.8 F 91 16 173/69 H 97 09/25/19 17:38 09/25/19 17:38 09/25/19 17:38 09/25/19 17:38 09/25/19 17:38 Intake & Output 09/24/19 09/25/19 09/26/19 06:59 06:59 06:59 Intake Total 1080 1417 793 Output Total 1950 2500 700 Balance -870 -1083 93 Weight 85 kg 82.8 kg General appearance: PRESENT: no acute distress, cooperative Neck exam: ABSENT: JVD Respiratory exam: PRESENT: crackles, unlabored. ABSENT: tachypnea, wheezes Cardiovascular exam: PRESENT: RRR, +S1, +S2. ABSENT: tachycardia GI/Abdominal exam: PRESENT: soft. ABSENT: rebound, rigid, tenderness Neurological exam: PRESENT: alert, awake, oriented to person, oriented to place, oriented to time, oriented to situation Results Laboratory Results: 09/22/19 06:04 09/25/19 04:39 09/25/19 04:39 Sodium 138.7 Potassium 3.3 L Chloride 103 Carbon Dioxide 26 Anion Gap 10 BUN 8 Creatinine 0.60 Est GFR ( Amer) > 60 Glucose 151 H Calcium 9.4 Magnesium 2.0 09/21/19 09/21/19 09/23/19 15:03 18:18 15:00 Creatine Kinase 66 Troponin I 0.037 0.038 NT-Pro-B Natriuret Pep 5500 H 09/23/19 09/23/19 15:00 21:16 Creatine Kinase Troponin I 0.036 0.055 NT-Pro-B Natriuret Pep Impressions: Chest X-Ray 09/21/19 14:38 IMPRESSION: No acute cardiopulmonary disease. Chest/Abdomen CTA 09/21/19 16:01 IMPRESSION: 1. No pulmonary emboli. 2. Cardiomegaly. Coronary artery calcifications. Small pericardial effusion. Reflux of intravenous contrast into the IVC and the hepatic veins, may be seen with right heart failure. 2. Interstitial edema. Moderate bilateral pleural effusions with bibasilar atelectasis. 3. 4.4 cm aneurysmal dilation of the ascending thoracic aorta, mildly increased in the interval. 4. 1.3 cm hypodense nodule at the right lobe of the thyroid gland. Nonemergent thyroid ultrasound can be obtained for further characterisation. Assessment and Plan - Diagnosis (1) Hypertensive emergency Is this a current diagnosis for this admission?: Yes Plan: Characterized by significantly elevated blood pressures, chest pain and shortness of breath with evidence of potential diastolic heart failure Patient continues to refuse all blood pressure medications. At this time, she does seem to have capacity but is very anxious about reacting to blood pressure medications. Despite several attempts to reassure and explained to patient that her reported side effect and not true side effects of the antihypertensives and putting her on, patient continues to refuse. Patient has declined valsartan and Imdur as well as other proposed antihypertensives. Patient has also declined beta-blockers. I have clearly explained the risks of refusing the antihypertensives and the fact that this would make any other treatment of her heart failure futile as this is probably the cause of her heart failure. I have also explained the risks of having a heart attack, stroke and dying from CHF or other cardiovascular causes if she continues to refuse her BP meds and patient has understood these risks and is willing to accept them rather than taking the blood pressure medications. Patient has agreed to going home with palliative care when ever she is discharged and will decide whether to proceed with hospice care in the outpatient setting. Continue Lasix IV 40 mg twice a day as patient is essentially refusing care with other medications/procedures. (2) Acute diastolic heart failure Is this a current diagnosis for this admission?: Yes Plan: Likely secondary to chronically uncontrolled hypertension Plan as listed in problem #1 with monitoring of I's and O's. Echocardiogram showing ejection fraction of 40 to 45%, LV and RV dilation likely secondary to remodeling of the heart from chronically uncontrolled hypertension, moderate mitral and aortic regurgitation. In the absence of proper afterload control, patient's congestive heart failure will not be able to be adequately controlled especially given mitral and aortic regurgitation. (3) Anxiety Is this a current diagnosis for this admission?: Yes Plan: Patient declines psychiatric help and patient has declined buspirone. (4) Acute respiratory failure with hypoxia Is this a current diagnosis for this admission?: Yes Plan: Currently patient is tolerating room air likely due to acute CHF exacerbation and bilateral pleural effusion. CTA negative for PE (5) Bilateral pleural effusion Is this a current diagnosis for this admission?: Yes Plan: Likely due to acute CHF exacerbation. I have discussed with patient about posterior and thoracentesis and patient has declined it I would only like to take the Lasix. (6) AIDAN (obstructive sleep apnea) Is this a current diagnosis for this admission?: Yes Plan: Nocturnal NIPPV. - Time Time Spent with patient: 15-24 minutes
[2019-09-26] MEDS: LORAZEPAM 0.5 MG TABLET PO SCH (05:12)
[2019-09-26 05:22] LABS: ANION GAP 9 (5-19); BLOOD UREA NITROGEN 14 mg/dL (7-20); CALCIUM 9.7 mg/dL (8.4-10.2); CARBON DIOXIDE 25 mmol/L (22-30); CHLORIDE 105 mmol/L (98-107); GLUCOSE 154 mg/dL (75-110)
[2019-09-26] MEDS ORDERED: LORAZEPAM 0.5 MG TABLET PO PRN (07:53)
[2019-09-26] MEDS: IPRATROPIUM/ALBUTEROL 0.5-2.5 MG/3 ML AMPUL NEB SCH ×2 (08:53→13:43)
[2019-09-26] MEDS: POTASSIUM CHLORIDE 10 MEQ TABLET.ER PO SCH (09:34)
[2019-09-26] MEDS: FUROSEMIDE INJ/PF 40 MG/4 ML SDV IV SCH (09:34)
[2019-09-26] MEDS: FAMOTIDINE 20 MG TABLET PO SCH (09:35)
[2019-09-26] MEDS: ENOXAPARIN SODIUM INJ 40 MG/0.4 ML DISP.SYRIN SUBCUT SCH (09:35)
--- NOTE | 2019-09-26 12:35 | PDOC DISCHARGE SUMMARY ---
Impression - Admit/DC Date/PCP Admission Date/Primary Care Provider: 09/21/19 18:26 STEFAN THAKUR DO Discharge Date: 09/26/19 - Discharge Diagnosis (1) Hypertensive emergency Is this a current diagnosis for this admission?: Yes (2) Acute diastolic heart failure Is this a current diagnosis for this admission?: Yes (3) Anxiety Is this a current diagnosis for this admission?: Yes (4) Acute respiratory failure with hypoxia Is this a current diagnosis for this admission?: Yes (5) Bilateral pleural effusion Is this a current diagnosis for this admission?: Yes (6) AIDAN (obstructive sleep apnea) Is this a current diagnosis for this admission?: Yes (7) Noncompliance by refusing intervention or support Is this a current diagnosis for this admission?: Yes - Additional Information Resuscitation Status: Do Not Resuscitate Discharge Diet: Cardiac Discharge Activity: Activity As Tolerated, Balance Activity w/Rest, Weigh Daily Referrals: STEFAN THAKUR DO [Primary Care Provider] - 10/01/19 11:40 am Prescriptions: Potassium Chloride [Klor-Con M20] 40 meq PO DAILY 30 Days #60 Furosemide [Lasix 40 mg Tablet] 40 mg PO DAILY #30 tablet Nitroglycerin [Nitrostat 0.4 mg (1/150 Gr) Tabs 25/Bottle] 1 tab SL Q5MP PRN #1 bottle PRN Reason: Home Medications: Furosemide [Lasix 20 mg Tablet] 20 mg PO QPM #30 09/26/19 Furosemide [Lasix 40 mg Tablet] 40 mg PO DAILY #30 tablet 09/26/19 Nitroglycerin [Nitrostat 0.4 mg (1/150 Gr) Tabs 25/Bottle] 1 tab SL Q5MP PRN #1 bottle 09/26/19 Potassium Chloride [Klor-Con M20] 40 meq PO DAILY 30 Days #60 09/26/19 History of Present Illiness History of Present Illness: ROBER VELÁZQUEZ is a 74 year old female past medical history of severe anxiety, obstructive sleep apnea, CHF, CAD status post stent placement in LAD May 2019, presenting with worsening shortness of breath, orthopnea and paroxysmal nocturnal dyspnea which has worsened after left heart cath and stent placement in May 2019. Denies any history prior SC however stating that prior to stent placement in 2018 she had severe CHF had a left heart cath done which showed complete blockage of RCA and LAD, had a stent placed in LAD and was supposed to have a CABG but was not a candidate. She is stating does not remember any medication by name but all her life she has not been able to tolerate any of her medications " if I am supposed to take it regularly " therefore she is not taking any medications right now except for her antianxiety and muscle relaxants. She denies any chest pain, fever, chills, nausea, headache, lightheadedness, abdominal pain, diarrhea, constipation or any urinary symptoms. Hospital Course Hospital Course: Patient was admitted with worsening shortness of breath. She was initially placed on BiPAP. Chest CTA was done which showed no pulmonary embolism but did show significant amount of bilateral pleural effusions worse on the right side. On presentation, patient's blood pressures were in the 200s/100s. Patient declined all blood pressure medications. Multiple attempts were made to have patient stay to talk to patient about initiating her on antihypertensive medications as well as beta blockers and patient declined all blood pressure medications. Patient states that she has taking all types of blood pressure medications and that she has had bad side effects from all medications, so she does not take BP meds. Patient also declined nitro paste. After several conversations with patient patient continues to refuse care. I spoke with patient's primary care provider Dr. Thakur who verified that patient has "perceived allergies" to all blood pressure medications that he has tried and he has pretty much been through most blood pressure medications with her. Confirmed that her blood pressures often run in the 200s but she has declined even in the outpatient setting. He was able to convince patient to take Lasix so patient was given IV Lasix for a few days and has been transitioned to p.o. Lasix on discharge. Unfortunately patient has refused most of the care have offered her which includes thoracentesis as well. Patient signed a refusal of care form. Echocardiogram showed ejection fraction of 40 to 45% with a dilated heart likely from uncontrolled hypertension. Patient has been off BiPAP for the past few days now and has been doing well on room air. Palliative care was consulted to see patient and patient is agreeable to going home with palliative care. She would like to discuss with her primary care provider before consid ering hospice. Patient's blood pressure at day of discharge is in the 150s systolic. Patient was ambulated this morning and did fine on room air without any significant dyspnea. Patient confirmed that she has been taking daily aspirin but stopped Plavix about 3 weeks ago because it made her dizzy. Of note ideally patient should be on aspirin and Plavix for at least a year since her PCI was done last year. Patient has been discharged in stable conditions. Physical Exam Vital Signs: Temp Pulse Resp BP Pulse Ox 97.8 F 83 18 101/65 99 09/26/19 12:21 09/26/19 12:21 09/26/19 12:21 09/26/19 12:21 09/26/19 12:21 Intake & Output 09/25/19 09/26/19 09/27/19 06:59 06:59 06:59 Intake Total 1417 1286 Output Total 2500 1000 Balance -1083 286 Weight 82.8 kg 82.6 kg General appearance: PRESENT: no acute distress, cooperative Neck exam: ABSENT: JVD Respiratory exam: PRESENT: clear to auscultation christiano, decreased breath sounds - Bibasilar, unlabored. ABSENT: tachypnea, wheezes Cardiovascular exam: PRESENT: RRR, +S1, +S2. ABSENT: tachycardia GI/Abdominal exam: PRESENT: soft. ABSENT: rebound, rigid, tenderness Neurological exam: PRESENT: alert, awake, oriented to person, oriented to place, oriented to time Results Laboratory Results: WBC 8.2 10^3/uL (4.0-10.5) 09/22/19 06:04 RBC 4.30 10^6/uL (3.72-5.28) 09/22/19 06:04 Hgb 12.1 g/dL (12.0-15.5) 09/22/19 06:04 Hct 36.1 % (36.0-47.0) 09/22/19 06:04 MCV 84 fl (80-97) 09/22/19 06:04 MCH 28.2 pg (27.0-33.4) 09/22/19 06:04 MCHC 33.6 g/dL (32.0-36.0) 09/22/19 06:04 RDW 13.5 % (11.5-14.0) 09/22/19 06:04 Plt Count 359 10^3/uL (150-450) 09/22/19 06:04 Lymph % (Auto) 33.7 % (13-45) 09/22/19 06:04 Screven % (Auto) 6.2 % (3-13) 09/22/19 06:04 Eos % (Auto) 1.1 % (0-6) 09/22/19 06:04 Baso % (Auto) 0.9 % (0-2) 09/22/19 06:04 Absolute Neuts (auto) 4.7 10^3/uL (1.7-8.2) 09/22/19 06:04 Absolute Lymphs (auto) 2.8 10^3/uL (0.5-4.7) 09/22/19 06:04 Absolute Monos (auto) 0.5 10^3/uL (0.1-1.4) 09/22/19 06:04 Absolute Eos (auto) 0.1 10^3/uL (0.0-0.6) 09/22/19 06:04 Absolute Basos (auto) 0.1 10^3/uL (0.0-0.2) 09/22/19 06:04 Seg Neutrophils % 58.1 % (42-78) 09/22/19 06:04 D-Dimer 0.69 ug/mL (0.00-0.50) H 09/21/19 15:11 Carbonic Acid Cancelled 09/21/19 17:30 HCO3/H2CO3 Ratio Cancelled 09/21/19 17:30 ABG pH Cancelled 09/21/19 17:30 ABG pCO2 Cancelled 09/21/19 17:30 ABG pO2 Cancelled 09/21/19 17:30 ABG HCO3 Cancelled 09/21/19 17:30 ABG Total CO2 Cancelled 09/21/19 17:30 ABG O2 Saturation Cancelled 09/21/19 17:30 ABG Base Excess Cancelled 09/21/19 17:30 FiO2 Cancelled 09/21/19 17:30 Sodium 138.5 mmol/L (137-145) 09/26/19 04:40 Potassium 4.0 mmol/L (3.6-5.0) 09/26/19 04:40 Chloride 105 mmol/L (98-107) 09/26/19 04:40 Carbon Dioxide 25 mmol/L (22-30) 09/26/19 04:40 Anion Gap 9 (5-19) 09/26/19 04:40 BUN 14 mg/dL (7-20) 09/26/19 04:40 Creatinine 0.60 mg/dL (0.52-1.25) 09/26/19 04:40 Est GFR ( Amer) > 60 (>60) 09/26/19 04:40 Est GFR (MDRD) Non-Af > 60 (>60) 09/26/19 04:40 Glucose 154 mg/dL (75-110) H 09/26/19 04:40 Calcium 9.7 mg/dL (8.4-10.2) 09/26/19 04:40 Magnesium 2.1 mg/dL (1.6-2.3) 09/26/19 04:40 Total Bilirubin 0.8 mg/dL (0.2-1.3) 09/22/19 06:04 Direct Bilirubin 0.0 mg/dL (0.0-0.4) 09/22/19 06:04 Neonat Total Bilirubin Not Reportable 09/22/19 06:04 Neonat Direct Bilirubin Not Reportable 09/22/19 06:04 Neonat Indirect Bili Not Reportable 09/22/19 06:04 AST 21 U/L (14-36) 09/22/19 06:04 ALT 28 U/L (<35) 09/22/19 06:04 Alkaline Phosphatase 103 U/L (38-126) 09/22/19 06:04 Creatine Kinase 66 U/L (30-135) 09/23/19 15:00 Troponin I 0.055 ng/mL 09/23/19 21:16 NT-Pro-B Natriuret Pep 5500 pg/mL (<450) H 09/21/19 15:03 Total Protein 6.6 g/dL (6.3-8.2) 09/22/19 06:04 Albumin 4.0 g/dL (3.5-5.0) 09/22/19 06:04 TSH 1.62 uIU/mL (0.47-4.68) 09/22/19 06:04 09/21/19 09/21/19 09/23/19 15:03 18:18 15:00 Troponin I 0.037 0.038 0.036 NT-Pro-B Natriuret Pep 5500 H 09/23/19 21:16 Troponin I 0.055 NT-Pro-B Natriuret Pep Impressions: Chest X-Ray 09/21/19 14:38 IMPRESSION: No acute cardiopulmonary disease. Chest/Abdomen CTA 09/21/19 16:01 IMPRESSION: 1. No pulmonary emboli. 2. Cardiomegaly. Coronary artery calcifications. Small pericardial effusion. Reflux of intravenous contrast into the IVC and the hepatic veins, may be seen with right heart failure. 2. Interstitial edema. Moderate bilateral pleural effusions with bibasilar atelectasis. 3. 4.4 cm aneurysmal dilation of the ascending thoracic aorta, mildly increased in the interval. 4. 1.3 cm hypodense nodule at the right lobe of the thyroid gland. Nonemergent thyroid ultrasound can be obtained for further characterisation. Plan Time Spent: Less than 30 Minutes Stroke Is this a Stroke Patient?: No Acute Heart Failure - Is this a Heart Failure Patient?: Yes Documentation of LVEF assessment?: Yes LVEF < 40%?: No- if no continue to question #3 3. Anticoagulant therapy for permanect/persistent/paraoxysmal Afib or Aflutter: N/A Follow-up Appointment scheduled within 7 days?: Yes
[2019-09-26 12:46] VITALS: BP 166/77
== END 2019-09-26 13:49 | disposition home or self-care (01) | DRG 291 ==
LOC: ER 14:20 → EH 18:26 → 3W 21:33
PROVIDERS: ADMIT Internal Medicine; ATTEND Internal Medicine
DX: I11.0 Hypertensive heart disease with heart failure (principal); I50.21 Acute systolic (congestive) heart failure; I16.1 Hypertensive emergency; F41.9 Anxiety disorder, unspecified; F32.9 Major depressive disorder, single episode, unspecified; I08.0 Rheumatic disorders of both mitral and aortic valves; E78.5 Hyperlipidemia, unspecified; I25.10 Atherosclerotic heart disease of native coronary artery without angina pectoris; Z90.49 Acquired absence of other specified parts of digestive tract; Z53.29 Procedure and treatment not carried out because of patient's decision for other reasons; G47.33 Obstructive sleep apnea (adult) (pediatric); Z95.5 Presence of coronary angioplasty implant and graft; Z90.710 Acquired absence of both cervix and uterus; Z79.899 Other long term (current) drug therapy; Z86.73 Personal history of transient ischemic attack (TIA), and cerebral infarction without residual deficits; Z88.6 Allergy status to analgesic agent; Z91.14 Patient's other noncompliance with medication regimen
CPT/HCPCS: 36415; 71045; 71275; 80048; 80053; 82550; 83735; 83880; 84443; 84484; 85025; 85379; 93005; 93010; 93306; 94640; 94660; 96374; 99285; J0360; J1940; J2270; J3480; J7620